=== PATIENT | female | born 1990 | race Two or more races ===

== ENCOUNTER 2018-06-26 14:04 | Inpatient (IN) | payer SELFPAY ==
[~2018-06-26] VITALS: Ht 172 cm; Wt 72.0 kg
[2018-06-26] MEDS ORDERED: DEXT 5%/LR + PITOCIN 20UNITS/L 1,000 ML IV SCH (15:43)
[2018-06-26] MEDS ORDERED: NALOXONE HCL 0.4 MG/ML 1ML VIAL IM PRN (15:45)
[2018-06-26] MEDS ORDERED: METHYLERGONOVINE MALEATE 0.2 MG/ML IM PRN (15:45)
[2018-06-26] MEDS ORDERED: CARBOPROST TROMETHAMINE 250 MCG/ML AMPUL IM PRN (15:45)
[2018-06-26] MEDS ORDERED: LIDOCAINE HCL 1% 20ML VIAL (Pyxis) INJ INFIL SCH (15:45)
[2018-06-26] MEDS ORDERED: PENICILLIN G POTASSIUM 5 MMU in DEXT 5% WATER 100 ML IV NR (16:30)
[2018-06-26] MEDS ORDERED: BUTORPHANOL TARTRATE 2 MG/ML VIAL IM PRN (16:45)
[2018-06-26 17:05] LABS: BASOPHILS % 0.3 % (0.0-2.0); EOSINOPHILS % 0.2 % (0.0-5.0); HEMATOCRIT. 36.9 % (36.0-48.0); HEMOGLOBIN. 12.4 g/dL (12.0-16.0); LYMPHOCYTES % 19.3 % (20.0-50.0); MEAN CORPUSCULAR HEMOGLOBIN 26.7 pg (28.0-32.0); MEAN CORPUSCULAR VOLUME 79.1 fL (81.0-99.0); MEAN PLATELET VOLUME 7.9 fl (7.4-10.4); MONOCYTES % 7.9 % (2.0-8.0); NEUTROPHILS % 72.3 % (40.0-76.0); PLATELET 275 x1000/uL (130-400); RED BLOOD CELL COUNT 4.66 mill/uL (4.2-5.4); RED CELL DISTRIBUTION WIDTH 13.7 % (11.6-14.6)
[2018-06-26 17:11] LABS: INR 0.9; PROTHROMBIN TIME 9.4 sec (9.1-11.1)
[2018-06-26] MEDS: LACTATED RINGERS 1,000 ML IV SCH ×2 (17:32→17:33)
[2018-06-26 17:44] LABS: HEPATITIS B SURFACE ANTIGEN NEGATIVE
[2018-06-26] MEDS ORDERED: GLYCERIN/WITCH HAZEL LEAF MEDICATED PAD TOP PRN (19:30)
[2018-06-26] MEDS ORDERED: ACETAMINOPHEN WITH CODEINE 300/30MG TABLET PO PRN (19:30)
[2018-06-26] MEDS ORDERED: DIPHENHYDRAMINE 25MG CAPSULE PO PRN (19:30)
[2018-06-26] MEDS ORDERED: HEMORRHOIDAL SUPP PR PRN (19:30)
[2018-06-26] MEDS ORDERED: IBUPROFEN 800MG TABLET PO PRN (19:30)
[2018-06-26] MEDS ORDERED: BISACODYL 10MG SUPP PR PRN (19:30)
[2018-06-26] MEDS ORDERED: BENZOCAINE/LANOLIN/ALOE VERA SPRAY TOP PRN (19:30)
[2018-06-26] MEDS ORDERED: IBUPROFEN 400MG TABLET PO PRN (19:30)
[2018-06-26] MEDS: DEXT 5%/LR + PITOCIN 20UNITS/L 1,000 ML IV SCH ×2 (20:22→21:21)
[2018-06-26] MEDS ORDERED: PENICILLIN G POTASSIUM 2.5 MMU in DEXTROSE 5% WATER 50 ML IV SCH (20:30)
[2018-06-26] MEDS: DOCUSATE SODIUM 100MG CAPSULE PO SCH (21:00)
[2018-06-26] MEDS: SIMETHICONE 80MG TABLET CHEW PO SCH (21:00)
[2018-06-27 07:15] LABS: BASOPHILS % 0.5 % (0.0-2.0); EOSINOPHILS % 0.1 % (0.0-5.0); HEMATOCRIT. 35.8 % (36.0-48.0); LYMPHOCYTES % 11.1 % (20.0-50.0); MEAN CORPUSCULAR HEMOGLOBIN 26.5 pg (28.0-32.0); MEAN CORPUSCULAR VOLUME 79.3 fL (81.0-99.0); MEAN PLATELET VOLUME 8.1 fl (7.4-10.4); MONOCYTES % 6.6 % (2.0-8.0); NEUTROPHILS % 81.7 % (40.0-76.0); PLATELET 279 x1000/uL (130-400); RED BLOOD CELL COUNT 4.52 mill/uL (4.2-5.4)
[2018-06-27 08:00] VITALS: BP 114/73
[2018-06-27] MEDS ORDERED: PRENATAL VIT/FE FUMARATE/FA TABLET PO SCH (09:00)
[2018-06-27] MEDS ORDERED: FERROUS SULFATE 325MG TABLET PO SCH (12:10)
[2018-06-27 16:40] VITALS: BP 111/59
[2018-06-27] MEDS: DOCUSATE SODIUM 100MG CAPSULE PO SCH (21:00)
[2018-06-27] MEDS: SIMETHICONE 80MG TABLET CHEW PO SCH (21:00)
[2018-06-27 22:04] VITALS: BP 105/58
[2018-06-27 23:41] LABS: *AMPHETAMINES SCREEN URINE NEGATIVE (NEGATIVE)
[2018-06-27 23:42] LABS: *BARBITURATES SCREEN URINE NEGATIVE (NEGATIVE); *BENZODIAZEPINES SCREEN URINE NEGATIVE (NEGATIVE); *COCAINE SCREEN URINE NEGATIVE (NEGATIVE); METHADONE URINE SCREEN NEGATIVE (NEGATIVE); OPIATES URINE SCREEN NEGATIVE (NEGATIVE); PHENCYCLIDINE URINE SCREEN NEGATIVE (NEGATIVE)
[2018-06-27 23:43] LABS: CANNABINOID URINE SCREEN NEGATIVE (NEGATIVE)
[2018-06-28 08:00] VITALS: BP 107/58
== END 2018-06-28 15:05 | disposition home or self-care (01) | DRG 560 ==
LOC: L&D 14:04 → OBSVTOIN 14:04 → 7EST PP/OB 22:00
PROVIDERS: ADMIT Obstetrics & Gynecology; ATTEND Obstetrics & Gynecology
PROC: 10E0XZZ Delivery of Products of Conception, External Approach (ICD-10-PCS; principal; 2018-06-26 19:00)
DX: O60.14X0 Preterm labor third trimester with preterm delivery third trimester, not applicable or unspecified (principal); Z37.0 Single live birth; Z3A.34 34 weeks gestation of pregnancy
CPT/HCPCS: 36415; 76815; 80305; 82962; 86592; 86703; 86762; 86850; 86900; 87070; 87340; G0378; J0595; J2540; J2590; J3490; J7060; J7120